=== PATIENT | female | born 1975 | race Two or more races ===

== ENCOUNTER → 2024-07-16 10:22 | Outpatient (REF) | payer OTHER, SELFPAY | LOC: RAD 10:22 | PROVIDERS: ATTENDING PHYSICIAN Specialist; FAMILY PHYSICIAN Nurse Practitioner; OTHER PHYSICIAN Physician Assistant Surgical | DX: M79.661 Pain in right lower leg (principal); Z98.890 Other specified postprocedural states; D68.51 Activated protein C resistance; M79.89 Other specified soft tissue disorders | CPT/HCPCS: 93971 ==